=== PATIENT | female | born 1995 | race Hispanic/Latino ===

== ENCOUNTER 2023-09-10 07:14 | Emergency (ER) | payer BC ==
[~2023-09-10] VITALS: Ht 160 cm; Wt 92.5 kg
[2023-09-10 07:18] VITALS: BP 119/64; PULSE 71; RESP 16; O2SAT 98
[2023-09-10] MEDS ORDERED: SOLU-MEDROL 125MG VIAL IM ONE (09:00)
[2023-09-10] MEDS ORDERED: PRED20TA3 PO (09:10)
== END 2023-09-10 09:18 | disposition home or self-care (01) ==
LOC: EDH 07:14
DX: L50.9 Urticaria, unspecified (principal); J45.909 Unspecified asthma, uncomplicated
CPT/HCPCS: 99284; 96372; J2930